=== PATIENT | female | born 1980 | race African-American/Black ===

== ENCOUNTER 2016-12-16 23:06 | Emergency (ER) | payer MEDICARE, MEDICAID ==
[~2016-12-16] VITALS: Ht 167.6 cm; Wt 73.0 kg
[2016-12-17] MEDS ORDERED: LORAZEPAM 1MG TABLET PO ONE (03:15)
[2016-12-17] MEDS ORDERED: KETOROLAC 60MG/2ML VIAL IM ONE (03:15)
[2016-12-17 03:52] LABS: BASOPHILS % 0.6 % (0.0-2.0); EOSINOPHILS % 3.1 % (0.0-5.0); HEMATOCRIT. 33.4 % (36.0-48.0); HEMOGLOBIN. 10.8 g/dL (12.0-16.0); LYMPHOCYTES % 36.5 % (20.0-50.0); MEAN CORPUSCULAR HEMOGLOBIN 27.5 pg (28.0-32.0); MEAN CORPUSCULAR VOLUME 85.2 fL (81.0-99.0); MEAN PLATELET VOLUME 7.8 fl (7.4-10.4); MONOCYTES % 5.9 % (2.0-8.0); NEUTROPHILS % 53.9 % (40.0-76.0); PLATELET 308 x1000/uL (130-400); RED BLOOD CELL COUNT 3.92 mill/uL (4.2-5.4); RED CELL DISTRIBUTION WIDTH 14.4 % (11.6-14.6)
[2016-12-17 03:58] LABS: HCG SCREEN NEGATIVE
[2016-12-17 04:01] LABS: CARBON DIOXIDE 25 mEq/L (21-32); CHLORIDE 111 mEq/L (98-107); ETHANOL BLOOD < 10 mg/dL
[2016-12-17 06:35] LABS: GLUCOSE URINE NEGATIVE (NEGATIVE); KETONES URINE TRACE (NEGATIVE); LEUKOCYTE ESTERASE URINE NEGATIVE (NEGATIVE); NITRITE URINE NEGATIVE (NEGATIVE); OCCULT BLOOD URINE 1+ (NEGATIVE); PROTEIN URINE NEGATIVE (NEGATIVE); SPECIFIC GRAVITY URINE 1.031 (1.005-1.030)
[2016-12-17 06:45] LABS: CLARITY URINE SL HAZY (CLEAR); COLOR URINE YELLOW (YELLOW)
[2016-12-17] MEDS ORDERED: ACETAMINOPHEN 500MG TABLET PO ONE (06:45)
[2016-12-17 06:52] LABS: *AMPHETAMINES SCREEN URINE NEGATIVE (NEGATIVE); *BARBITURATES SCREEN URINE NEGATIVE (NEGATIVE); *COCAINE SCREEN URINE NEGATIVE (NEGATIVE); METHADONE URINE SCREEN NEGATIVE (NEGATIVE); OPIATES URINE SCREEN NEGATIVE (NEGATIVE); PHENCYCLIDINE URINE SCREEN NEGATIVE (NEGATIVE)
[2016-12-17 06:54] LABS: *BENZODIAZEPINES SCREEN URINE PRESUMTIVE POSITIVE (NEGATIVE); CANNABINOID URINE SCREEN PRESUMTIVE POSITIVE (NEGATIVE)
[2016-12-17 09:20] VITALS: BP 112/74
== END 2016-12-17 09:52 | disposition home or self-care (01) ==
LOC: ER 23:06
DX: F41.9 Anxiety disorder, unspecified (principal); F32.9 Major depressive disorder, single episode, unspecified; M79.1 Myalgia; M60.9 Myositis, unspecified; M54.30 Sciatica, unspecified side; J45.909 Unspecified asthma, uncomplicated; Z88.0 Allergy status to penicillin; Z87.828 Personal history of other (healed) physical injury and trauma
CPT/HCPCS: 36415; 72100; 80053; 80305; 80307; 80329; 81001; 84703; 85025; 96372; 99285; G0482; J1885

== ENCOUNTER 2017-11-20 23:22 | Emergency (ER) | payer MEDICARE, MEDICAID ==
[~2017-11-20] VITALS: Ht 165.1 cm; Wt 84.0 kg
[2017-11-21] MEDS ORDERED: HYDR200T80 MT (01:29)
[2017-11-21] MEDS ORDERED: PREG165T PO (01:29)
[2017-11-21] MEDS ORDERED: MAGN250T29 MT (01:31)
[2017-11-21] MEDS ORDERED: ONDA4TAB8 SL (01:31)
[2017-11-21] MEDS ORDERED: VITA1CAP MT (01:31)
[2017-11-21 07:37] LABS: CHLORIDE 107 mEq/L (98-107)
[2017-11-21 07:40] LABS: BASOPHILS % 0.5 % (0.0-2.0); EOSINOPHILS % 0.4 % (0.0-5.0); HEMATOCRIT. 35.7 % (36.0-48.0); HEMOGLOBIN. 11.7 g/dL (12.0-16.0); LYMPHOCYTES % 28.2 % (20.0-50.0); MEAN CORPUSCULAR HEMOGLOBIN 27.6 pg (28.0-32.0); MEAN CORPUSCULAR VOLUME 84.4 fL (81.0-99.0); MEAN PLATELET VOLUME 8.3 fl (7.4-10.4); MONOCYTES % 5.1 % (2.0-8.0); NEUTROPHILS % 65.8 % (40.0-76.0); PLATELET 278 x1000/uL (130-400); RED BLOOD CELL COUNT 4.23 mill/uL (4.2-5.4); RED CELL DISTRIBUTION WIDTH 14.9 % (11.6-14.6)
[2017-11-21 07:41] LABS: D-DIMER 0.3 mg/L FEU (<0.50); INR 1.1
[2017-11-21 07:44] LABS: *AMPHETAMINES SCREEN URINE NEGATIVE (NEGATIVE); *BARBITURATES SCREEN URINE NEGATIVE (NEGATIVE); *BENZODIAZEPINES SCREEN URINE NEGATIVE (NEGATIVE); *COCAINE SCREEN URINE NEGATIVE (NEGATIVE); METHADONE URINE SCREEN NEGATIVE (NEGATIVE)
[2017-11-21 07:45] LABS: OPIATES URINE SCREEN NEGATIVE (NEGATIVE); PHENCYCLIDINE URINE SCREEN NEGATIVE (NEGATIVE)
[2017-11-21] MEDS ORDERED: ASPIRIN 325MG TABLET PO ONE (07:45)
[2017-11-21 07:47] LABS: CANNABINOID URINE SCREEN PRESUMTIVE POSITIVE (NEGATIVE)
[2017-11-21 08:12] LABS: HCG SCREEN NEGATIVE
[2017-11-21] MEDS ORDERED: ONDANSETRON 4MG ODT PO ONE (08:15)
[2017-11-21 08:36] VITALS: BP 127/69
== END 2017-11-21 08:37 | disposition home or self-care (01) ==
LOC: ER 23:22
DX: R07.89 Other chest pain (principal); M79.7 Fibromyalgia; M32.9 Systemic lupus erythematosus, unspecified; J45.909 Unspecified asthma, uncomplicated; F41.9 Anxiety disorder, unspecified; F43.10 Post-traumatic stress disorder, unspecified; F17.200 Nicotine dependence, unspecified, uncomplicated; Z88.0 Allergy status to penicillin; Z88.3 Allergy status to other anti-infective agents; Z88.5 Allergy status to narcotic agent
CPT/HCPCS: 36415; 71045; 80053; 80305; 81025; 83880; 84484; 84703; 85025; 85379; 85610; 93005; 99285; Q0162

== ENCOUNTER 2023-05-09 01:15 | Emergency (ER) | payer MEDICARE, MEDICAID ==
[~2023-05-09] VITALS: Ht 172.7 cm; Wt 95.0 kg
[~2023-05-09 01:15] MED LIST: HYDR200T80 MT; MAGN250T29 MT; ONDA4TAB8 SL; PREG165T PO; VITA1CAP MT
[2023-05-09 01:22] VITALS: BP 150/90; PULSE 90; RESP 16; TEMP 98.4; O2SAT 98
== END 2023-05-09 02:14 | disposition home or self-care (01) ==
LOC: ER 01:15
DX: F41.9 Anxiety disorder, unspecified (principal); R52 Pain, unspecified
CPT/HCPCS: 99283